=== PATIENT | female | born 1975 | race American Indian/Alaskan Native ===

== ENCOUNTER 2017-10-14 09:03 | Outpatient (CLI) | payer OTHER ==
--- NOTE | 2017-10-14 12:12 | XRay Report ---
XRAY LEFT KNEE 4 THREE VIEWS: 10/14/17 CLINICAL: Left knee pain. FINDINGS: No fracture or dislocation. The medial and lateral joint spaces are normal. A tiny inferior patellofemoral osteophyte.No joint effusion.Normal soft tissues. IMPRESSION: Mild patellofemoral osteoarthritis and otherwise normal.
== END 2017-10-14 09:04 | disposition home or self-care (01) ==
LOC: SPVIMAG 09:03
PROVIDERS: ATTEND Orthopaedic Surgery Sports Medicine
DX: M17.12 Unilateral primary osteoarthritis, left knee (principal)